=== PATIENT | female | born 1995 | race Caucasian/White ===

== ENCOUNTER 2022-01-24 14:02 | Emergency (ER) | payer OTHER ==
[~2022-01-24] VITALS: Ht 157.7 cm; Wt 43.1 kg
[2022-01-24 14:08] VITALS: BP 97/52
--- NOTE | 2022-01-24 14:18 | NUR ---
[facility]: RIGHT EYE 20/40, LEFT EYE 20/30, BOTH EYES 20/30
--- NOTE | 2022-01-24 14:23 | NUR ---
REFERRED FROM CLINIC C/O HEADACHE, BLURRY VISION, R IGHT ARM WEAKNESS X 1 MONTH. [facility]: RIGHT EYE 20/40, LEFT EYE 20/30, BOTH EYES 20/30 PMH: DENIES
[2022-01-24] MEDS ORDERED: MECLIZINE 25 MG TAB PO ONE (15:15)
[2022-01-24] MEDS ORDERED: KETOROLAC 15 MG/ML VIAL IM ONE (15:15)
--- NOTE | 2022-01-24 15:39 | NUR ---
PT AMBULATED TO ROOM 12, ACCOMPANIED BY SONS
[2022-01-24 15:45] LABS: APPEARANCE,URINE CLEAR (CLEAR); BILIRUBIN,URINE NEGATIVE (NEGATIVE); BLOOD, URINE 1+ (NEGATIVE); COLOR,URINE YELLOW (YELLOW); LEUKOCYTE ESTERASE ,URINE 2+ (NEGATIVE); NITRITE, URINE NEGATIVE (NEGATIVE); PH,URINE 6.5 (5.0-9.0); UGLUCOSE NEGATIVE (NEGATIVE)
--- NOTE | 2022-01-24 15:45 | NUR ---
26YO FEMALE PT C/O DIZZINESS AND HEADACHE X1WEEK. STATES UNPROVOKED EPISODES ALONG W/ BLURRY VISION. DENIES TAKING MEDICATION FOR PAIN, N/V/D, CHEST PAIN, SOB, FEVER OR CHILLS. DENIES NUMBING OR LOSS OF SENSATION.PT AAOX4, SPEAKING IN CLEAR FULL SENTENCES. NO VISIBLE DISTRESS. RESPIRATIONS EVEN AND UNLABORED. LITHUANIAN SPEAKING. HX:DENIES NKA
[2022-01-24 15:57] LABS: TRICHOMONAS,URINE None Seen /HPF (None Seen); YEAST,URINE None Seen /HPF (None Seen)
[2022-01-24 16:05] LABS: BASOPHILS % (AUTO) 0.4 % (0.0-2.0); EOSINOPHILS # (AUTO) 0.1 K/uL (0-0.4); EOSINOPHILS % (AUTO) 1.2 % (0.0-4.0); HEMATOCRIT 38.3 % (36-48); HEMOGLOBIN 13.3 g/dL (12.0-16.0); LYMPHOCYTES # (AUTO) 2.3 K/uL (2.5-16.5); LYMPHOCYTES % (AUTO) 37.1 % (20.5-51.1); MEAN CORPUSCULAR HEMOGLOBIN 29 pg (27-31); MEAN CORPUSCULAR HGB CONC 35 g/dL (33-37); MEAN CORPUSCULAR VOLUME 83.9 fL (80-94); MONOCYTES # (AUTO) 0.5 K/uL (0.8-1.0); MONOCYTES % (AUTO) 8.7 % (1.7-9.3); NEUTROPHILS # (AUTO) 3.2 K/uL (1.8-7.7); NEUTROPHILS % (AUTO) 52.6 % (42.2-75.2); PLATELET COUNT (AUTO) 254 K/uL (140-450); RED BLOOD CELL COUNT(AUTO) 4.56 MIL/uL (4.20-5.40); RED CELL DISTRIBUTION WIDTH 13.7 % (11.6-13.7); WHITE BLOOD COUNT (AUTO) 6.1 K/uL (4.8-10.8)
[2022-01-24 16:18] LABS: ALBUMIN 3.9 g/dL (3.4-5.0); ANION GAP 13.2 (8-16); CARBON DIOXIDE 27.8 mmol/L (21-32); CREATININE 0.6 mg/dL (0.6-1.3); TOTAL BILIRUBIN 0.5 mg/dL (0.0-1.0)
[2022-01-24] MEDS ORDERED: MECL-303 PO (18:45)
[2022-01-24 18:53] VITALS: BP 110/70
--- NOTE | 2022-01-24 18:53 | NUR ---
Chart checked and completed.
--- NOTE | 2022-01-24 18:53 | NUR ---
Patient discharged with v/s stable. Written and verbal after care instructions FOR DIZZINESS given and explained. Patient alert, oriented and verbalized understanding of instructions. Ambulatory with steady gait. All questions addressed prior to discharge. ID band removed. Patient advised to follow up with PMD. Rx of ANTIVERT given. Opportunity to ask questions provided and answered.
== END 2022-01-24 18:53 | disposition home or self-care (01) ==
LOC: MED 14:02
DX: H81.391 Other peripheral vertigo, right ear (principal)
CPT/HCPCS: 36415; 70450; 80053; 81001; 81025; 85025; 87086; 96372; 99285; J1885; J8597